=== PATIENT | male | born 1985 | race African-American/Black ===

== ENCOUNTER 2025-09-03 22:50 | Emergency (ER) | payer MEDICARE, SELFPAY ==
--- NOTE | ~2025-09-03 | XR_ITS ---
CLINICAL HISTORY: pain LUMBAR SPINE X-RAYS, FRONTAL AND LATERAL VIEWS COMPARISON: None provided. FINDINGS: Frontal and lateral views of the lumbar spine were obtained. Patient is rotated on the lateral images. No evidence of an acute fracture or dislocation in the lumbar spine. There is minimal levocurvature of the lumbar spine. No spondylolysis or spondylolisthesis. No significant disc space narrowing. IMPRESSION: 1. No acute disease. This document has been electronically signed by: Maurilio Harris M.D. on 09/04/2025 00:43:13
[2025-09-03 22:58] VITALS: BP 148/90; PULSE 73; O2SAT 97
[2025-09-03 23:02] VITALS: BP 161/87; PULSE 72; RESP 18; TEMP 36.5; O2SAT 98; BMI 313.1
--- NOTE | 2025-09-04 01:55 | ED_ITS ---
HPI - General Adult General Chief complaint: Back Pain/Injury Stated complaint: back pain Time Seen by Provider: 09/04/25 01:03 Source: patient Limitations: no limitations History of Present Illness ED Provider: Fabi Antunez PA-C HPI narrative: 40-year-old male presents with lumbar pain. Patient states he was taking out the trash, when he suddenly developed low back pain. Pain primarily right-sided nonradiating. Pain worse with position change. Denies weakness of lower extremities, paresthesia, urinary retention or bowel incontinence. Related Data Previous Rx's ?Medication ?Instructions ?Recorded ketorolac 10 mg tablet 10 mg PO Q6H PRN pain #20 ta bs 09/04/25 methocarbamol 750 mg tablet 1,500 mg (2 x 750 mg) PO Q 8H PRN 09/04/25 pain, moderate #24 tabs methylprednisolone 4 mg tablets in 4 mg PO QAM #21 ea 09/04/25 a dose pack (Medrol (Dylan)) Allergies Allergy/AdvReac Type Severity Reaction Status Date / Time No Known Allergies (No Known Allergy Verified 09/03/25 23:03 Allergies*) Review of Systems Review of Systems: Yes all other systems are reviewed and are negative Constitutional: Constitutional: Denies fatigue and Denies fever(s) Musculoskeletal: Musculoskeletal: Reports back pain, Denies muscle weakness, Denies numbness, Denies radiating pain into limb and Denies tingling Neurologic: Denies numbness and Denies tingling Endocrine: Endocrine: Denies fatigue PMFSH Past Medical History Attestation statement: The following information was validated with the patient. Social History Social History Advance Directives: No Advance Directives Information Provided: Yes Physical Exam ED Vital Signs: Vital Signs - 24 hr 09/03/25 23:02 Temperature 97.7 F Pulse Rate 72 Respiratory Rate 18 Blood Pressure 161/87 H Pulse Oximetry 98 Oxygen Delivery Method Room Air BMI result Body Mass Index 313.1 Const Other: Alert well-appearing Orientation/consciousness: patient oriented x3 Resp Effort & Inspection: normal respiratory effort Cardio Other: Normal peripheral perfusion Skin Other: Warm dry no rash Neuro General: patient oriented x3, gait normal, no focal motor deficits and CN's II- XI intact bilaterally Extrem Other: Strength 5/5 bilateral lower extremities with resistance Psych Other: Cooperative Medications Administered Discontinued Medications Generic Name Dose Route Start Last Admin Trade Name Freq PRN Reason Stop Dose Admin Ketorolac Tromethamine 15 mg 09/04/25 01:23 09/04/25 01:46 Ketorolac Tromethamine 15 Mg/Ml Vial IM 09/04/25 01:24 15 mg ONCE ONE Administration Methocarbamol 1,500 mg 09/04/25 01:23 09/04/25 01:44 Methocarbamol 750 Mg Tablet PO 09/04/25 01:24 1,500 mg ONCE ONE Administration Prednisone 10 mg 09/04/25 01:23 09/04/25 01:44 Prednisone 10 Mg Tablet PO 09/04/25 01:24 10 mg ONCE ONE Administration Medical Decision Making Medical Decision Making MDM Narrative: 40-year-old male presents with lumbar pain. Patient states he was taking out the trash, when he suddenly developed low back pain. Pain primarily right-sided nonradiating. Pain worse with position change. Denies weakness of lower extrem ities, paresthesia, urinary retention or bowel incontinence. No chronic issues that are relevant History: Per patient I have considered the following differential diagnoses: Lumbar strain, lumbar radiculopathy, cauda equina, compression fracture Plan: X-ray of the lumbar spine ordered from triage, it is completely normal, and we will treat the patient for musculoskeletal strain I have independently reviewed the following tests: X-ray lumbar spine:FINDINGS: Frontal and lateral views of the lumbar spine were obtained. Patient is rotated on the lateral images. No evidence of an acute fracture or dislocation in the lumbar spine. There is minimal levocurvature of the lumbar spine. No spondylolysis or spondylolisthesis. No significant disc space narrowing. IMPRESSION: 1. No acute disease. Differential Diagnosis Differential Diagnoses: The differential diagnosis associated with the presentation includes See medical decision-making Admission/Observation Consideration of admission/observation: Escalation of care including admission /observation considered Not applicable Radiology Impression Discussion of test interpretation with radiology: I have reviewed the radiologist's reading. Discharge Plan Discharge Clinical Impression: Strain of lumbar region Patient Disposition: Home, Self-Care Instructions: Low Back Strain (ED) Additional Instructions: You are being treated for lumbar strain. The x-ray of your back was completely normal. See home care instructions. Use the methocarbamol as needed for pain this is a muscle relaxant, it will cause drowsiness do not drive or operate machinery while taking the medication. Use the ketorolac as directed take it w ith food this is an anti-inflammatory. Take the steroid taper as directed this is a 2nd anti-inflammatory, take it in the morning. Follow up with primary care as needed Prescriptions: New methocarbamol 750 mg tablet 1,500 mg PO Q8H PRN (Reason: pain, moderate) Qty: 24 0RF ketorolac 10 mg tablet 10 mg PO Q6H PRN (Reason: pain) Qty: 20 0RF Rx Instructions: maximum total duration of 5 days from all oral, intranasal, or parenteral formulations. The patient received an intramuscular dose of Toradol here in the emergency room methylprednisolone [Medrol (Dylan)] 4 mg tablets,dose pack 4 mg PO QAM Qty: 21 0RF Rx Instructions: Take per package instructions Print Language: German
[2025-09-04 02:18] VITALS: BP 161/87; PULSE 72; RESP 18; TEMP 36.5; O2SAT 98
== END 2025-09-04 02:20 | disposition home or self-care (01) ==
PROVIDERS: Emergency Provider Emergency Medicine
DX: S39.012A Strain of muscle, fascia and tendon of lower back, initial encounter (principal); X58.XXXA Exposure to other specified factors, initial encounter; Y93.9 Activity, unspecified; Y92.9 Unspecified place or not applicable; Y99.8 Other external cause status
CPT/HCPCS: 72100; 96372; 99283; 99284; J1885

== ENCOUNTER → 2025-09-03 23:20 | Outpatient (BNV) | payer MEDICAID, SELFPAY | PROVIDERS: Visit Provider Radiology Diagnostic Radiology | DX: M54.50 Low back pain, unspecified (principal) | CPT/HCPCS: 72100 ==